=== PATIENT | female | born 1980 | race Native Hawaiian/Other Pacific Islander ===

== ENCOUNTER 2016-10-30 16:13 | Inpatient (IN) | payer BC ==
[2016-10-30 17:48] LABS: BASO % 0.2 % (0.0-2.0); EOS % 0.6 % (0.0-4.0); HEMATOCRIT 40.1 % (34.0-47.0); LYMPH # 1.3 K/uL (1.0-4.3); LYMPH % 18.3 % (20.0-40.0); MEAN CELL VOLUME 93.3 fL (81.0-99.0); MEAN CORPUSCULAR HEMOGLOBIN 31.7 pg (27.0-31.0); MEAN PLATELET VOLUME 8.2 fL (7.2-11.7); MONO # 0.5 K/uL (0.0-0.8); MONO % 7.3 % (0.0-10.0); RED CELL DISTRIBUTION WIDTH 15.2 % (11.5-14.5); WHITE BLOOD COUNT 6.9 K/uL (4.8-10.8)
[2016-10-30 17:57] LABS: CHLORIDE 105 mmol/L (98-107); FIBRINOGEN 389 mg/dL (200-400); INR 0.9; PARTIAL THROMBOPLASTIN TIME 31 SECONDS (21-34); RBC URINE 24 /hpf (0-3); URINE BACTERIA RARE (<OCC); URINE BILIRUBIN NEGATIVE (NEGATIVE); URINE BLOOD 1+ (NEGATIVE); URINE COLOR Yellow (YELLOW); URINE GLUCOSE (UA) NORMAL (Normal); URINE KETONE NEGATIVE (NEGATIVE); URINE LEUKOCYTE ESTERASE 3+ Leu/uL (Negative); URINE PROTEIN NEGATIVE (NEGATIVE); URINE UROBILINOGEN NORMAL mg/dL (0.2-1.0); WBC URINE 53 /hpf (0-5)
[2016-10-30 17:58] LABS: POTASSIUM 4.2 mmol/L (3.6-5.2)
[2016-10-30 18:04] LABS: ALB/GLOB RATIO 0.9 (1.0-2.1); ALKALINE PHOSPHATASE 66 U/L (38-126); AST/SGOT 37 U/L (14-36); BILIRUBIN,TOTAL 0.7 mg/dL (0.2-1.3); CARBON DIOXIDE 21 mmol/L (22-30); GFR AFRICAN-AMERICAN > 60; TOTAL PROTEIN 7.3 g/dL (6.3-8.3)
[2016-10-30 18:05] LABS: ALT/SGPT 19 U/L (9-52); BLOOD UREA NITROGEN 3 mg/dL (7-17); CALCIUM 8.9 mg/dl (8.6-10.4); GLUCOSE,RANDOM 78 mg/dL (65-105)
[2016-10-30 18:08] LABS: FDP INTERPRETATION POSITIVE (NEGATIVE); FDP QUANTITY >10<40 ug/mL (<10)
[2016-10-30 18:13] LABS: SODIUM 137 mmol/L (132-148)
--- NOTE | 2016-10-30 18:56 | OBADHP ---
Datetime: 10/30/2016 16:20 IP Chief Complaint Other: IUFD at 26 weeks; AMA Admit Comment, IP Provider: 36 y.o. , LMP 04/26/16, MEGAN 01/31/17, EGA 26 weeks, referred by [facility], Dr. Harris for induction procedure/ uterine evacuation secondary to IUFD. Patient presented for routine visit today: reported decreased movement x 1 week. M.D. performed office ultr asound: noted for no amnionic fluid and findings c/w demise. Patient denies any leakage of flu id per vagina, vaginal bleeding or abdomnal pain. issues: Dr. Harris, 4 visits. 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 Lives with FOB; together x 2 years. 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 Father alive 71 y.o.; both, no med issues. No known fam h/o cancer P.E.: as above. Thin, in NAD. Appropriately sad. Awake, alert, oriented to time, person and place . Accompanied by FOB Assessment: 36 y.o. P0010, 26weeks IUFD (by PMD) for uterine evacuation. Procedure involving cer vical ripening by oral agent; and pain management, epidural versus IV medications was discussed with patient. Patient has no questions. Clinically stable. Plan: 1) Admit 2) NPO 3) IVFs 4) [place] only 5) Admission labs, incl blood work for FD 6) Cytotec 200 micrograms p.o. every 4 hours until Ctx q 2-3 minutes, and/or delivery 7) Observation Pelvic Type - PN: Adequate Extremities - PN: Normal Abdomen - PN: Normal Back - PN: Normal Breast - PN: Not Done Lungs - PN: Normal Heart - PN: Normal Thyroid - PN: Not Done Neurologic - PN: Normal HEENT - PN: Normal General - PN: Normal FHR - Baseline A Provider: N/A Contraction Comments Provider: 1-2 minutes Comments, ACOG Physical Exam: Abdomen: gravid. Soft. non tender All other systems reviewed and are negative Gestation - Est Wks by US: 26w 5d IP Hx Assessment: The History has been Reviewed and is Current Vital Signs Provider: Reviewed IP Chief Complaint: Other NICHD Variability Prov Fetus A: N/A Dilatation, Provider: 0 Effacement, Provider: 0 Station, Provider: high Genitourinary Exam: Normal DTRs - PN: Not Done IP Adm Impression: , intrauterine IP Admit Plan: Admit to unit; Initiate demise protocol
[2016-10-30 21:31] LABS: RAPID PLASMA REAGIN NONREACTIVE (NONREACTIVE)
[2016-10-31 08:53] VITALS: RESP 20
--- NOTE | 2016-10-31 10:19 | OBPN ---
Datetime: 10/31/2016 10:08 IP Progress Note Comment: S-patient states that she has mild pain.rate pain as 2-3/10. O-VSS Afebrile SVE 1/50/HIGH A/P Patient with IUFD at 26.6 wga -400mcg cytotec placed vaginally -monitor closey Discussed with dr michael Hilliard, Provider: 1 Effacement, Provider: 50 Station, Provider: high Datetime: 10/30/2016 16:20 Contraction Comments Provider: 1-2 minutes FHR - Baseline A Provider: N/A Gestation - Est Wks by US: 26w 5d Vital Signs Provider: Reviewed NICHD Variability Prov Fetus A: N/A
--- NOTE | 2016-10-31 13:20 | OBPN ---
Datetime: 10/31/2016 13:14 IP Progress Note Comment: Asked by dr rodriguez to put cervical ripening catheter S-patient starting to feel the contractions SVE /high A/P Patient with iufd at 26.6 wga.Requesting epidural -cook catheter placed.cervical and vagianl bulb inflated with 60cc of saline. -anesthesia called for epidural Vital Signs Provider: Reviewed; Within Normal Limits
[2016-10-31] MEDS ORDERED: Bupivacaine 0.125%/FentaNYL 200 ML EPI ONE (13:29)
[2016-10-31 15:43] LABS: BASO % 0.2 % (0.0-2.0); EOS % 0.1 % (0.0-4.0); HEMATOCRIT 40.3 % (34.0-47.0); LYMPH # 0.8 K/uL (1.0-4.3); LYMPH % 5.4 % (20.0-40.0); MEAN CELL VOLUME 93.9 fL (81.0-99.0); MEAN CORPUSCULAR HEMOGLOBIN 30.6 pg (27.0-31.0); MEAN CORPUSCULAR HGB CONC 32.6 g/dL (33.0-37.0); MEAN PLATELET VOLUME 8.4 fL (7.2-11.7); MONO # 0.7 K/uL (0.0-0.8); MONO % 4.8 % (0.0-10.0); PLATELET COUNT 173 K/uL (130-400); RED CELL DISTRIBUTION WIDTH 14.9 % (11.5-14.5); WHITE BLOOD COUNT 14.9 K/uL (4.8-10.8)
[2016-10-31 16:00] LABS: NEUTROPHIL 81 % (50-75); TOTAL CELLS COUNTED 100
[2016-10-31] MEDS ORDERED: Lidocaine 2% MPF (5 ml) Inj ONE (18:15)
[2016-10-31] MEDS ORDERED: Bupivacaine HCl 0.25% PF (10 ml) Inj ONE (18:15)
--- NOTE | 2016-10-31 20:40 | OBPN ---
Datetime: 10/31/2016 20:35 IP Progress Impression Other: IUFD IP Progress Plan: Continue present management IP Progress Note Comment: IUFD, complete/+2 station, intact, breech anticipate soon
[2016-10-31] MEDS ORDERED: Gentamicin 80 mg/2mL Inj. ONE (20:42)
--- NOTE | 2016-10-31 21:50 | OBDS ---
DELIVERY PERSONNEL Delivery Doctor: DR. DEY Raw Material Handler: Nery Bowman RN Anesthesiologist: Emile Cummings MD MATERNAL INFORMATION Delivery Anesthesia: Epidural Medications in Delivery: PITOCIN Other Maternal Complications: IUFD Provider Comments: ROM at time of delivery. Dark blood tinged and malodorous. Fetus in complete br eech delivered with pushing intact. Placenta intact. ultrasound done at the end confirms clean uter ine stripe. LABOR SUMMARY EDC: 01/31/2017 00:00 No. Babies in Womb: 1 Attempted: No Labor Anesthesia: Epidural LABOR INFORMATION Reason for Induction: Demise Cervical Ripening Agents: [place] Balloon; Cytotec @ Group B Beta Strep: Not Done Steroids Given: None Reason Steroids Not Administered: Not Applicable VAGINAL DELIVERY Episiotomy: None Laceration Extension: N/A Laceration Type: None Laceration Repair: Not Applicable BABY A INFORMATION Born in Route : No : N/A Forceps: N/A Vacuum Extraction: N/A Shoulder Dystocia : No INFANT INFORMATION BABY A Gestational Age at Delivery: 26.6
[2016-10-31] MEDS ORDERED: Benzocaine/Menthol 20%-0.5% Topical Spray (60 ml) TOP PRN (21:56)
[2016-10-31] MEDS ORDERED: Oxycodone/Acetaminophen 5/325 mg Tab PO PRN (21:56)
[2016-11-01] MEDS ORDERED: Clindamycin 600mg/50ml NS 600 MG/50 ML BAG IVPB ONE (02:00)
[2016-11-01] MEDS ORDERED: Clindamycin 600 MG in Sodium Chloride 0.9% 100 ML IVPB ONE (02:00)
[2016-11-01 08:28] LABS: HEMATOCRIT 36.8 % (34.0-47.0); MEAN CELL VOLUME 94.4 fL (81.0-99.0); MEAN CORPUSCULAR HEMOGLOBIN 30.8 pg (27.0-31.0); MEAN CORPUSCULAR HGB CONC 32.7 g/dL (33.0-37.0); MEAN PLATELET VOLUME 8.2 fL (7.2-11.7); WHITE BLOOD COUNT 13.3 K/uL (4.8-10.8)
--- NOTE | 2016-11-01 09:46 | CP.PCM.DIS ---
Provider - Provider Date of Admission: 10/30/16 16:28 Attending physician: Minnie Harris MD Time Spent in preparation of Discharge (in minutes): 45 Hospital Course - Lab Results Lab Results: Most Recent Lab Values WBC 13.3 K/uL (4.8-10.8) H 11/01/16 08:17 RBC 3.90 Mil/uL (3.80-5.20) 11/01/16 08:17 Hgb 12.0 g/dL (11.0-16.0) 11/01/16 08:17 Hct 36.8 % (34.0-47.0) 11/01/16 08:17 MCV 94.4 fL (81.0-99.0) 11/01/16 08:17 MCH 30.8 pg (27.0-31.0) 11/01/16 08:17 MCHC 32.7 g/dL (33.0-37.0) L 11/01/16 08:17 RDW 15.0 % (11.5-14.5) H 11/01/16 08:17 Plt Count 151 K/uL (130-400) 11/01/16 08:17 MPV 8.2 fL (7.2-11.7) 11/01/16 08:17 Neut % (Auto) 89.5 % (50.0-75.0) H 10/31/16 15:39 Lymph % (Auto) 5.4 % (20.0-40.0) L 10/31/16 15:39 [place] % (Auto) 4.8 % (0.0-10.0) 10/31/16 15:39 Eos % (Auto) 0.1 % (0.0-4.0) 10/31/16 15:39 Baso % (Auto) 0.2 % (0.0-2.0) 10/31/16 15:39 Neut # 13.4 K/uL (1.8-7.0) H 10/31/16 15:39 Lymph # 0.8 K/uL (1.0-4.3) L 10/31/16 15:39 [place] # 0.7 K/uL (0.0-0.8) 10/31/16 15:39 Eos # 0.0 K/uL (0.0-0.7) 10/31/16 15:39 Baso # 0.0 K/uL (0.0-0.2) 10/31/16 15:39 Neutrophils % (Manual) 81 % (50-75) H 10/31/16 15:39 Band Neutrophils % 7 % (0-2) H 10/31/16 15:39 Lymphocytes % (Manual) 5 % (20-40) L 10/31/16 15:39 Monocytes % (Manual) 7 % (0-10) 10/31/16 15:39 Platelet Estimate Normal (NORMAL) 10/31/16 15:39 Ovalocytes Slight 10/31/16 15:39 PT 10.8 SECONDS (9.7-12.2) 10/31/16 16:35 INR 1.0 10/31/16 16:35 APTT 31 SECONDS (21-34) 10/31/16 16:35 Fibrinogen 398 mg/dL (200-400) 10/31/16 16:35 Fibrin Degrad Products Positive (NEGATIVE) H 10/30/16 17:39 Fibrin Degrad Prod, Qt >10<40 ug/mL (<10) H 10/30/16 17:39 Sodium 137 mmol/L (132-148) 10/30/16 17:39 Potassium 4.2 mmol/L (3.6-5.2) 10/30/16 17:39 Chloride 105 mmol/L (98-107) 10/30/16 17:39 Carbon Dioxide 21 mmol/L (22-30) L 10/30/16 17:39 Anion Gap 15 (10-20) 10/30/16 17:39 BUN 3 mg/dL (7-17) L 10/30/16 17:39 Creatinine 0.4 MG/DL (0.7-1.2) L 10/30/16 17:39 Est GFR ( Amer) > 60 10/30/16 17:39 Est GFR (Non-Af Amer) > 60 10/30/16 17:39 Random Glucose 78 mg/dL (65-105) 10/30/16 17:39 Hemoglobin A1c 5.3 % (4.2-6.5) 10/30/16 17:39 Calcium 8.9 mg/dl (8.6-10.4) 10/30/16 17:39 Total Bilirubin 0.7 mg/dL (0.2-1.3) 10/30/16 17:39 AST 37 U/L (14-36) H 10/30/16 17:39 ALT 19 U/L (9-52) 10/30/16 17:39 Alkaline Phosphatase 66 U/L (38-126) 10/30/16 17:39 Total Protein 7.3 g/dL (6.3-8.3) 10/30/16 17:39 Albumin 3.5 g/dL (3.5-5.0) 10/30/16 17:39 Globulin 3.8 gm/dL (2.2-3.9) 10/30/16 17:39 Albumin/Globulin Ratio 0.9 (1.0-2.1) L 10/30/16 17:39 Urine Color Yellow (YELLOW) 10/30/16 17:39 Urine Clarity Hazy (Clear) 10/30/16 17:39 Urine pH 7.0 (5.0-8.0) 10/30/16 17:39 Ur Specific [place] 1.005 (1.003-1.030) 10/30/16 17:39 Urine Protein Negative mg/dL (NEGATIVE) 10/30/16 17:39 Urine Glucose (UA) Normal mg/dL (Normal) 10/30/16 17:39 Urine Ketones Negative mg/dL (NEGATIVE) 10/30/16 17:39 Urine Blood 1+ (NEGATIVE) H 10/30/16 17:39 Urine Nitrate Negative (NEGATIVE) 10/30/16 17:39 Urine Bilirubin Negative (NEGATIVE) 10/30/16 17:39 Urine Urobilinogen Normal mg/dL (0.2-1.0) 10/30/16 17:39 Ur Leukocyte Esterase 3+ Kassi/uL (Negative) H 10/30/16 17:39 Urine WBC (Auto) 53 /hpf (0-5) H 10/30/16 17:39 Urine RBC (Auto) 24 /hpf (0-3) H 10/30/16 17:39 Ur Squamous Epith Cells 23 /hpf (0-5) H 10/30/16 17:39 Urine Bacteria Rare (<OCC) 10/30/16 17:39 RPR Nonreactive (NONREACTIVE) 10/30/16 17:39 Hep Bs Antigen Negative (NEGATIVE) 10/30/16 17:39 HIV 1&2 Antibody Screen Negative (NEGATIVE) 10/30/16 17:39 Rubella IgG Antibody Positive (POSITIVE) 10/30/16 17:39 Blood Type B POSITIVE 10/31/16 15:39 Blood Type Confirm B POSITIVE 10/31/16 15:39 Antibody Screen Negative 10/31/16 15:39 - Hospital Course Hospital Course: Ms. Humphrey is a 36yo , LMP 04/26/16, MEGAN 01/31/17, EGA 26wks who presented for induction procedure/uterine evacuation secondary to IUFD on 10/30/16. Pt reported decreased movements x1 wk. MD performed office US noted for no amniotic fluid and findings c/w demise. Pt denied any leakage of fluid per vagina, vaginal bleeding or abdominal pain. Pt was following up with Dr Harris. POb included VTOPx1. PGyn [id number]. Denies any significant medical history , surgeries, and any tobacco/ETOH/drug use. Pt was admitted and received cytotec vaginally, and later had cook catheter placed with cervical and vaginal bulb inflation and epidural was given. Pt received Pitocin and ROM occurred at time of delivery. Dark blood tinged and malodorous and fetus was in complete breech delivered with pushing. placenta intact. US done at end of procedure confirmed clean uterine stripe. Pt remained afebrile and labs were followed. Pt pain controlled on Motrin. Morning of 11/01/16, pt denies any vaginal bleeding, abdominal pain, fevers. Pt told to f/u Dr. Harris for continued care and to see next steps, and recommended to continue vitamins and was prescribed Motrin PRN. - Date & Time of H&P Date of H&P: 10/30/16 Time of H&P: 18:55 Discharge Exam - Head Exam Head Exam: ATRAUMATIC, NORMAL INSPECTION, NORMOCEPHALIC - Eye Exam Eye Exam: EOMI, Normal appearance, PERRL - ENT Exam ENT Exam: Mucous Membranes Moist, Normal Exam - Respiratory Exam Respiratory Exam: NORMAL BREATHING PATTERN, UNREMARKABLE. absent: Accessory Muscle Use - Cardiovascular Exam Cardiovascular Exam: RRR. absent: JVD - GI/Abdominal Exam GI & Abdominal Exam: Normal Bowel Sounds, Soft. absent: Distended - Extremities Exam Additional comments: no pedal edema or calf tenderness - Neurological Exam Neurological exam: Alert, Oriented x3 - Psychiatric Exam Psychiatric exam: Normal Affect, Normal Mood - Skin Skin Exam: Normal Color, Warm Discharge Plan - Discharge Medications Prescriptions: Ibuprofen [Motrin Tab] 800 mg PO Q6 PRN #30 tab PRN Reason: Pain, Mild (1-3) - Follow Up Plan Condition: GOOD Disposition: HOME/ ROUTINE Additional Instructions: 1. Please follow-up with Dr. Harris for continued care 2. Please continue to take your vitamins 3. You are prescribed pain meds. Please take them as prescribed only if needed 4. If you experience any breast tenderness, please apply warm compressed to them 5. If you experience any severe pain or abnormal bleeding, please go to ER or contact Dr. Harris regarding the issue Thank you
[2016-11-01] MEDS ORDERED: Multiple Vitamins Tab PO SCH (10:00)
--- NOTE | 2016-11-01 14:08 | CP.PCM.PN ---
Subjective - Date & Time of Evaluation Date of Evaluation: 11/01/16 Time of Evaluation: 09:00 - Subjective Subjective: pt was seen and examined at bedside. denied any abdominal pain, discharge or fevers. states that she discussed her wishes with Dr. Harris regarding the care of the fetus. Objective - Vital Signs/Intake and Output Vital Signs (last 24 hours): Temp Pulse Resp BP Pulse Ox 98.5 F 66 20 96/56 L 96 10/31/16 08:50 10/31/16 08:50 10/31/16 08:50 10/31/16 08:50 10/30/16 18:45 - Medications Medications: Current Medications Benzocaine/Menthol (Dermoplast 20%-0.5%) 0 ml TOP PRN PRN PRN Reason: Perineal Discomfort Docusate Sodium (Colace) 100 mg PO BID MYLA Ibuprofen (Motrin Tab) 600 mg PO Q6 PRN PRN Reason: Pain, Mild (1-3) Misoprostol (Cytotec) 400 mcg VAG Q4 MYLA Multivitamins (Hexavitamin) 1 tab PO DAILY MYLA Oxycodone/Acetaminophen (Percocet 5/325 Mg Tab) 1 tab PO Q4H PRN PRN Reason: Pain, moderate (4-7) Stop: 11/03/16 21:57 - Labs Labs: 11/01/16 08:17 10/30/16 17:39 PT 10.8 SECONDS (9.7-12.2) 10/31/16 16:35 INR 1.0 10/31/16 16:35 APTT 31 SECONDS (21-34) 10/31/16 16:35 - Constitutional Appears: Well, No Acute Distress - Head Exam Head Exam: ATRAUMATIC, NORMAL INSPECTION, NORMOCEPHALIC - Eye Exam Eye Exam: EOMI, Normal appearance - ENT Exam ENT Exam: Mucous Membranes Moist - Respiratory Exam Respiratory Exam: Clear to Ausculation Bilateral, NORMAL BREATHING PATTERN. absent: Accessory Muscle Use, Respiratory Distress - Cardiovascular Exam Cardiovascular Exam: RRR, +S1, +S2 - GI/Abdominal Exam GI & Abdominal Exam: Soft, Normal Bowel Sounds. absent: Tenderness - Neurological Exam Neurological Exam: Alert, Awake, Oriented x3 - Psychiatric Exam Psychiatric exam: Normal Affect, Normal Mood - Skin Skin Exam: Normal Color, Warm Assessment and Plan - Assessment and Plan (Free Text) Assessment: 36yo F s/p demise and uterine evacuation Plan: pt to be discharged motrin PRN script provided continue vitamins f/u Dr. Harris
[2016-11-01 20:01] LABS: CYTOMEGALOVIRUS AB (IGM) <30.00 AU/mL
[2016-11-02 15:25] VITALS: BP 98/60; PULSE 73; TEMP 97.5; O2SAT 98
== END 2016-11-01 13:30 | disposition home or self-care (01) | DRG 770 ==
LOC: C.EROB 16:13 → C.4D 16:28 → C.4M 10-31 23:45
PROVIDERS: ADMIT Obstetrics & Gynecology; ATTEND Obstetrics & Gynecology
PROC: 10D17ZZ Extraction of Products of Conception, Retained, Via Natural or Artificial Opening (ICD-10-PCS; principal; 2016-10-30)
PROC: 3E0P7GC Introduction of Other Therapeutic Substance into Female Reproductive, Via Natural or Artificial Opening (ICD-10-PCS; 2016-10-30)
DX: O02.1 Missed abortion (principal); Z3A.26 26 weeks gestation of pregnancy